=== PATIENT | male | born 1980 | race African-American/Black ===

== ENCOUNTER 2017-04-06 14:10 | Emergency (ER) | payer OTHER ==
[~2017-04-06] VITALS: Ht 172.7 cm; Wt 85.0 kg
[~2017-04-06 14:10] MED LIST: CIPRO500 MG PO; ULTRAM50 MG PO
[2017-04-06 14:16] VITALS: BP 107/64
[2017-04-06 14:59] LABS: HEMATOCRIT 39.9 % (38.0-50.0); MCHC 32.1 G/DL (30.0-36.0); MCV 74.7 FL (86-99); MEAN PLAT.VOLUME 10.6 uM^3 (9.0-12.4); PLATELET COUNT 179 K/uL (156-360); RBC DIS.WIDTH-CV 14.5 % (11.8-14.6); RBC DIS.WIDTH-SD 39.1 % (39-53); RED BLOOD COUNT 5.34 M/uL (4.00-5.50)
[2017-04-06 15:02] LABS: CHLORIDE 106 mEq/L (99-109); POTASSIUM 3.9 mEq/L (3.7-5.4); SODIUM 141 mEq/L (136-147)
[2017-04-06 15:04] LABS: GLUCOSE 150 mg/dL (70-99)
[2017-04-06 15:05] LABS: ANION GAP 10 MEQ/L (2-14)
[2017-04-06 15:07] LABS: SERUM ETHYL ALCOHOL < 10 mg/dL
[2017-04-06 15:08] LABS: GFR ESTIMATE (CALCULATED) > 59 mL/min/
[2017-04-06 15:09] LABS: ALKALINE PHOSPHATASE 61 IU/L (3-129)
[2017-04-06 15:10] LABS: UREA NITROGEN (BUN) 21 mg/dL (9-23)
[2017-04-06 15:11] LABS: SALICYLATE < 5.0 MG/DL (15-30)
[2017-04-06 15:12] LABS: CREATINE KINASE 265 IU/L (1-294); TOTAL CK 265 IU/L (1-294)
[2017-04-06 15:21] LABS: CK-MB 1.2 ng/mL (0.0-4.9)
== END 2017-04-06 15:07 | disposition left against medical advice (07) ==
LOC: EME 14:10
PROVIDERS: Emergency Medicine
DX: R00.0 Tachycardia, unspecified (principal); D72.829 Elevated white blood cell count, unspecified; F10.10 Alcohol abuse, uncomplicated; F17.200 Nicotine dependence, unspecified, uncomplicated
CPT/HCPCS: 80053; 81003; 82550; 82553; 85027; 93005; 99281; 99285; G0480